=== PATIENT | female | born 1990 | race Caucasian/White ===

== ENCOUNTER → 2017-06-26 | Outpatient (CLI) | payer OTHER | END | disposition home or self-care (01) | LOC: C.PAPS 09:41 | PROVIDERS: ATTEND Physician Assistant | DX: Z12.4 Encounter for screening for malignant neoplasm of cervix (principal); R87.615 Unsatisfactory cytologic smear of cervix ==

== ENCOUNTER → 2017-06-29 | Outpatient (CLI) | payer OTHER ==
--- NOTE | 2017-07-02 07:49 | MAMMOGRAPHY REPORT ---
ULTRASOUND OF BOTH BREASTS: 06/29/2017 CLINICAL HISTORY: The patient reports diffuse bilateral breast tenderness, left greater than right. She denies any palpable lumps. COMPARISON: No prior exams were available for comparison. TECHNIQUE: Real-time ultrasound of both breasts was performed. FINDINGS: Real-time, high-resolution ultrasound was performed of bilateral breasts including all 4 qu adrants and subareolar regions. No suspicious masses or other suspicious sonographic abnormalities a re evident. A few small benign anechoic simple cysts were noted during the exam, including a small 4 mm simple cyst in the left 9:00 breast, 3 cm from the nipple, a 3 mm cyst in the right breast at 9:0 0, 4 cm from the nipple, and a 5 mm benign simple cyst in the right 10:00 periareolar breast. In the right 10:00 breast, 8 cm from the nipple, there is a morphologically normal intramammary lymph node measuring 5 mm. Benign focal duct ectasia is seen within the left medial subareolar breast, without evidence of an intraductal mass or other suspicious finding. IMPRESSION: ACR BI-RADS CATEGORY 2: BENIGN There is no sonographic evidence of malignancy in either breast. No etiology for diffuse bilateral b reast pain evident. Recommend clinical follow-up. The patient was verbally notified of the results. Kassidy Douglas M.D. /:06/29/2017 14:13:57 Order Tracer: Kassidy Douglas MD, [facility] letter sent: Normal 1/2 BI-RADS Code: ACR BI-RADS Category 2: Benign
== END | disposition home or self-care (01) ==
LOC: C.MAMM 13:29
PROVIDERS: ATTEND Physician Assistant
DX: N64.4 Mastodynia (principal)